=== PATIENT | female | born 2000 | race Caucasian/White ===

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

== ENCOUNTER 2022-09-08 00:13 | Observation (INO) ==
[2022-09-08] MEDS ORDERED: Lactated Ringers 1000 ml BAG 1,000 ML IV ONE (00:24)
[2022-09-08 00:57] LABS: Hematocrit 31.8 % (35-45); Hemoglobin 10.8 g/dL (11.5-14.3); Mean Corpuscular Hemoglobin 23.6 pg (27-33); Mean Corpuscular Volume 69.4 fL (80-97); Platelet Count 233 10^3/uL (150-450); Red Blood Count 4.59 10^6/uL (3.63-4.92); Red Cell Distribution Width 15.8 % (12-17); White Blood Count 7.3 10^3/uL (3.8-11.8)
[2022-09-08 01:00] LABS: INR 1.25 (0.88-1.18)
[2022-09-08 01:12] LABS: Albumin 3.7 g/dL (3.2-5.2); Albumin/Globulin Ratio 1.2 (1-3); C Reactive Protein 129.49 mg/L (<8.01); Calcium 8.8 mg/dL (8.6-10.3); Creatinine, Serum 1.21 mg/dL (0.51-0.95); Globulin 3.2 g/dL (2-4); Total Bilirubin 0.4 mg/dL (0.2-1.0); Total Protein 6.9 g/dL (6.4-8.9); eGFR CKD-EPI 65.4 (>60)
[2022-09-08 01:34] LABS: Potassium 2.6 mmol/L (3.5-5.0)
[2022-09-08] MEDS ORDERED: Potassium EFFERVES 25 meq TAB PO ONE ×2 (01:34→02:12)
[2022-09-08 01:57] LABS: Platelet Morphology Large
[2022-09-08 01:58] LABS: ABS Lymphocytes 0.8 10^3/uL (1.0-4.8); ABS Monocytes 1.1 10^3/uL (0.0-0.9); ABS Neutrophils 5.4 10^3/uL (1.5-7.6); Lymphocyte % 10.7 %
[2022-09-08] MEDS ORDERED: KCL 20 MEQ/100 ML IVPREMIX 20 MEQ/100 ML BAG IV SCH ×2 (02:00→12:00)
[2022-09-08 02:32] LABS: Magnesium 1.7 mg/dL (1.9-2.7)
[2022-09-08 02:41] LABS: High Sensitivity Troponin 1 Hr 6 pg/mL (<15)
[2022-09-08] MEDS ORDERED: Magnesium Sulfate 2 gm BAG 2 GM/50 ML BAG IVPB ONE (02:47)
[2022-09-08] MEDS ORDERED: Potassium Chlor 20 meq TAB.ER PO ONE ×2 (02:49→07:26)
[2022-09-08] MEDS ORDERED: Senna TAB 8.6 mg TAB PO PRN (03:18)
[2022-09-08] MEDS ORDERED: Ondansetron 4 mg VIAL 2 MG/ML 2 ml VIAL IV PRN (03:18)
[2022-09-08] MEDS ORDERED: Fluticasone NASAL SPRAY 50MCG 16 gm SPRAY BTL INTRANASAL PRN (03:27)
[2022-09-08] MEDS ORDERED: Albuterol HFA INHALER 8 gm MDI INH PRN (03:27)
[2022-09-08 03:36] LABS: % Iron Saturation 4 % (15-55); .Transferrin 374 mg/dL (203-362); Iron < 20 ug/dL (50-212); Total Iron Binding Capacity 524 mcg/dL (250-450); Unsaturated Iron Binding 504 ug/dL
[2022-09-08 04:08] LABS: Ferritin 32.3 ng/mL (11-307)
[2022-09-08 05:30] LABS: ABS Basophils 0.1 10^3/uL (0.0-0.1); ABS Monocytes 0.9 10^3/uL (0.0-0.9); Eosinophil % 0.1 %; Hematocrit 31.3 % (35-45); Hemoglobin 10.6 g/dL (11.5-14.3); Lymphocyte % 12.3 %; Mean Corpuscular Hemoglobin 23.8 pg (27-33); Mean Corpuscular Hgb Conc 33.9 g/dL (31-36); Mean Corpuscular Volume 70.2 fL (80-97); Mean Platelet Volume 7.6 fL (7.5-11.2); Platelet Count 223 10^3/uL (150-450); Red Blood Count 4.46 10^6/uL (3.63-4.92); Red Cell Distribution Width 15.8 % (12-17); White Blood Count 7.9 10^3/uL (3.8-11.8)
[2022-09-08 05:44] LABS: Calcium 8.6 mg/dL (8.6-10.3); Creatinine, Serum 1.11 mg/dL (0.51-0.95); Magnesium 2.5 mg/dL (1.9-2.7); eGFR CKD-EPI 72.5 (>60)
[2022-09-08] MEDS ORDERED: NORETHINDRONE E ESTRADIOL IRON PO SCH (08:30)
[2022-09-08] MEDS ORDERED: [UNRECOGNIZED DRUG - OTHER] PO SCH (08:30)
[2022-09-08] MEDS: KCL 20 MEQ/100 ML IVPREMIX 20 MEQ/100 ML BAG IV SCH ×2 (10:13→14:31)
[2022-09-08 14:34] VITALS: BP 94/56
[2022-09-08 15:53] LABS: Creatinine, Serum 1.17 mg/dL (0.51-0.95); Magnesium 2.1 mg/dL (1.9-2.7); Potassium 3.9 mmol/L (3.5-5.0); eGFR CKD-EPI 68.1 (>60)
[2022-09-11 10:17] LABS: Anaplasma phagocytophilum Negative (Negative); B. miyamotoi PCR, B Negative (Negative); Babesia divergens/MO-1 Negative (Negative); Babesia ducani Negative (Negative); Ehrlichia chaffeensis Negative (Negative); Ehrlichia ewingii/canis Negative (Negative); Ehrlichia muris eauclairensis Negative (Negative)
== END 2022-09-08 17:00 | disposition home or self-care (01) ==
LOC: ED 00:13 → EDHOLD 02:21 → INTOOBSV 02:21 → SUATTDRO 02:21 → SSU 09:09
PROVIDERS: ADMIT Internal Medicine; ATTEND Hospitalist